=== PATIENT | male | born 1940 ===

== ENCOUNTER 2022-02-12 10:22 | Day surgery (SDC) | payer OTHER ==
[~2022-02-12] VITALS: Ht 175.3 cm; Wt 90.2 kg
[2022-02-12 12:01] VITALS: BP 136/62; PULSE 57; TEMP 97.8
[2022-02-12] MEDS ORDERED: ASPIRIN 81M81 MG/TA2 PO (12:07)
[2022-02-12] MEDS ORDERED: LOPRESSOR 225 MG/TAB PO (12:07)
[2022-02-12] MEDS ORDERED: EPA FISH OIL1 SGL PO (12:07)
[2022-02-12] MEDS ORDERED: HCTZ 25MG TAB25 MG PO (12:08)
[2022-02-12] MEDS ORDERED: FLOMAX 0.40.4 MG/CAP PO (12:09)
[2022-02-12] MEDS ORDERED: FERROUS SU325 MG/TAB PO (12:09)
[2022-02-12] MEDS ORDERED: MELATONIN5 M1 SL (12:10)
[2022-02-12] MEDS ORDERED: IMODIUM 2MG CAPS2 MG PO (12:10)
[2022-02-12 13:25] VITALS: BP 97/63; PULSE 89; TEMP 98.1
--- NOTE | 2022-02-12 13:25 | NUR ---
1325 Pt returns from endo procedure via cart and RN assist to [facility]. Pt ambulates from cart to recliner with RN assist. Monitors on and alarms set. Call light within reach. Report received from SG Fuller. Pt alert and oriented. Pt requests coffee only. Pt denies any pain or nausea. 1335 Pt taking drink well. No complications noted. 1410 Discharge instructions given to pt and pt's . All questions answered to their satisfaction. Handed to pt are a thank you card and discharge information. Pt waiting to have post-op visit with Dr. Cowan. 1420 Dr. Cowan in to visit with pt. 1431 Pt transferred out of the hospital via wheelchair and SG Weinstein assist, to private vehicle driven by pt's .
[2022-02-12 13:45] VITALS: BP 111/70; PULSE 75
[2022-02-12 14:00] VITALS: BP 134/75; PULSE 80
== END 2022-02-12 14:31 | disposition home or self-care (01) ==
LOC: SDCO 10:22
DX: D50.9 Iron deficiency anemia, unspecified (principal); K44.9 Diaphragmatic hernia without obstruction or gangrene; I48.92 Unspecified atrial flutter; Z87.891 Personal history of nicotine dependence; Z79.899 Other long term (current) drug therapy
CPT/HCPCS: J2704; J7120

== ENCOUNTER 2023-10-28 10:31 | Day surgery (SDC) | payer OTHER ==
[~2023-10-28] VITALS: Ht 175.3 cm; Wt 87.4 kg
[~2023-10-28 10:31] MED LIST: ASPIRIN 81M81 MG/TA2 PO; EPA FISH OIL1 SGL PO; FERROUS SU325 MG/TAB PO; FLOMAX 0.40.4 MG/CAP PO; HCTZ 25MG TAB25 MG PO; IMODIUM 2MG CAPS2 MG PO; LOPRESSOR 225 MG/TAB PO; MELATONIN5 M1 SL
[2023-10-28 11:07] LABS: HEMATOCRIT 46.8 % (42.0-52.0); HEMOGLOBIN 15.4 g/dl (13.5-18.0); MEAN CELL VOLUME 92 fl (80.0-100.0); MEAN CORPUSCULAR HEMOGLOBIN 30 pg (27-31); MEAN CORPUSCULAR HGB CONC 33 g/dl (33.0-37.0); MEAN PLATELET VOLUME 9.6 fl (7.4-10.4); PLATELET COUNT 288 K/mm3 (130-400); RED BLOOD COUNT 5.08 M/mm3 (4.20-5.60); REDCELL DISTRIBUTION WIDTH-CV 14.8 % (11.5-14.5)
[2023-10-28 11:20] LABS: PROTHROMBIN TIME 11.4 SECONDS (9.7-12.8)
[2023-10-28 11:21] VITALS: BP 133/67; PULSE 60; TEMP 98.1
[2023-10-28 11:22] LABS: CALCIUM 9.4 mg/dL (8.4-10.2); CREATININE, serum 1.16 mg/dL (0.72-1.25); POTASSIUM 4.9 mmol/L (3.5-4.5)
[2023-10-28 11:23] LABS: PARTIAL THROMBOPLASTIN TIME 32.4 SECONDS (26.0-37.0)
[2023-10-28] MEDS ORDERED: NORVASC 5MG5 MG/TAB PO (11:27)
[2023-10-28] MEDS ORDERED: BREZTRI AEROS10.7 GM IH (11:28)
[2023-10-28 13:30] VITALS: BP 161/73; PULSE 60
[2023-10-28 13:45] VITALS: BP 164/77; PULSE 70
[2023-10-28 14:00] VITALS: BP 146/66; PULSE 60
[2023-10-28 14:15] VITALS: BP 173/78; PULSE 62
[2023-10-28 14:30] VITALS: BP 167/74; PULSE 64
--- NOTE | 2023-10-28 14:50 | NUR ---
Pt brought to 12 accompanied by . Pt is scheduled for a JE. EKG done. IV started, labs drawn. Meds and HX reviewed with the pt. Consent for the procedure signed. JE procedure done. Pt recovered with us for about an hr. Food and something to drink were offered. Pt accepted some coffee and a muffin. Discharge education and information given to the pt. No questions at this time. Pt exited the unit by wheelchair to wifes car.
== END 2023-10-28 14:39 | disposition home or self-care (01) ==
LOC: COL.CAR 10:31
PROVIDERS: Internal Medicine Cardiovascular Disease
DX: I48.91 Unspecified atrial fibrillation (principal); I48.92 Unspecified atrial flutter; I47.10 Supraventricular tachycardia, unspecified; Z95.0 Presence of cardiac pacemaker; Z95.818 Presence of other cardiac implants and grafts; Z87.891 Personal history of nicotine dependence
CPT/HCPCS: J2704